=== PATIENT | male | born 1970 | race Two or more races ===

== ENCOUNTER 2021-01-20 15:52 | Emergency (ER) | payer OTHER ==
[~2021-01-20] VITALS: Ht 180.3 cm; Wt 106.6 kg
[2021-01-20] MEDS ORDERED: ATACAND4 MG (16:35)
[2021-01-20] MEDS ORDERED: PYRIDIUM200 MG PO (20:36)
[2021-01-20] MEDS ORDERED: LEVOFLOXACIN500 MG PO (20:36)
[2021-01-20] MEDS ORDERED: TAMS0.4C PO (20:36)
== END 2021-01-20 20:43 | disposition home or self-care (01) ==
LOC: ER 15:52
DX: N30.80 Other cystitis without hematuria (principal)